=== PATIENT | male | born 1995 | race Caucasian/White ===

== ENCOUNTER 2020-05-06 23:59 | Emergency (ER) | payer SELFPAY ==
[~2020-05-06] VITALS: Ht 180.3 cm; Wt 95.5 kg
[2020-05-07 00:05] VITALS: BP 153/97
--- NOTE | 2020-05-07 00:26 | PHYS DOC ---
General Adult EDM: Chief Complaint: UPPER EXTREMITY SWELLING HPI: HPI: Patient is a 25 year old male who presents with complaint of right middle finger swelling and pain. Patient states that is been swollen for the last couple of days. He denies any fever. Patient was seen at [facility] a couple of weeks ago with complaints of swelling in his feet. Patient was diagnosed with plantar fasciitis. [] Review of Systems: Review of Systems: Constitutional: Denies fever or chills. [] Respiratory: Denies cough or shortness of breath. [] Cardiovascular: Denies chest pain or edema. [] Musculoskeletal: Complains of right middle finger swelling and pain. [] Integument: Denies rash. [] Heart Score: Risk Factors: Risk Factors: DM, Current or recent (<one month) smoker, HTN, HLP, family history of CAD, obesity. Risk Scores: Score 0 - 3: 2.5% MACE over next 6 weeks - Discharge Home Score 4 - 6: 20.3% MACE over next 6 weeks - Admit for Clinical Observation Score 7 - 10: 72.7% MACE over next 6 weeks - Early Invasive Strategies Physical Exam: PE: Constitutional: Well developed, well nourished, no acute distress, non-toxic appearance. [] Cardiovascular: Regular rate and rhythm [] Lungs & Thorax: Bilateral breath sounds clear to auscultation [] Extremities: Examination of the right middle finger demonstrates mild soft tissue swelling with tenderness distally and no evidence of trauma. [] Neurologic: Alert and oriented X 3, no focal deficits noted. [] EKG: EKG: [] Radiology/Procedures: Radiology/Procedures: [] Course & Med Decision Making: Course & Med Decision Making Pertinent Labs and Imaging studies reviewed. (See chart for details) [] Dragon Disclaimer: Dragon Disclaimer: This electronic medical record was generated, in whole or in part, using a voice recognition dictation system. Departure Departure Impression: Primary Impression: Finger pain, right Disposition: 07 AGAINST MEDICAL ADVICE (A medical screening examination has been performed on this patient and patient elected not to pay $150 co-pay and will follow-up as an outpatient.) Condition: STABLE Referrals: NO PCP (PCP) Justicifation of Admission Dx: Justifications for Admission: Justification of Admission Dx: Comment: (Not applicable) HARVEY POWELL Jr. DO May 07, 2020 00:26
== END 2020-05-07 00:17 | disposition left against medical advice (07) ==
LOC: ER 23:59
DX: M79.644 Pain in right finger(s) (principal); R60.0 Localized edema
CPT/HCPCS: 99281